=== PATIENT | male | born 1950 | race Caucasian/White ===

== ENCOUNTER → 2017-05-01 | Outpatient (CLI) | payer BC ==
[~2017-05-01] MED LIST: ASCA500 PO; ASPI81TA28 PO; ATOR10TA82 PO; CARV3.122 PO; COEN1CAP40 PO; LISI-729 PO; NITR0.4S UT; RBN/2 PO; RILU1TAB PO; VITACAP37 PO
[2017-05-01 15:56] LABS: HEMATOCRIT 47.2 % (42-52); MEAN CORPUSCULAR HEMOGLOBIN 30.1 pg (25-34); MEAN PLATELET VOLUME 10.5 fL (7.4-10.4); PLATELET COUNT 255 K/uL (130-400); RED BLOOD COUNT 5.02 M/uL (4.7-6.1); WHITE BLOOD COUNT 6.57 K/uL (4.8-10.8)
[2017-05-01 16:18] LABS: BLOOD UREA NITROGEN 12 mg/dl (7-18); CREATININE 0.64 mg/dl (0.60-1.40); GLUCOSE 85 mg/dl (70-99)
[2017-05-01 16:19] LABS: ALT/SGPT 61 U/L (12-78); AST/SGOT 35 U/L (15-37); BUN/CREATININE RATIO 19.1 (10-20); CALCIUM 8.7 mg/dl (8.5-10.1); CARBON DIOXIDE 35 mmol/L (21-32); CHLORIDE 98 mmol/L (98-107); POTASSIUM 4.2 mmol/L (3.5-5.1); SODIUM 137 mmol/L (136-145)
== END | disposition home or self-care (01) ==
LOC: C.LAB1850 14:48
PROVIDERS: ATTEND Internal Medicine Cardiovascular Disease
DX: E78.5 Hyperlipidemia, unspecified (principal); R74.0 Nonspecific elevation of levels of transaminase and lactic acid dehydrogenase [LDH]; I25.10 Atherosclerotic heart disease of native coronary artery without angina pectoris

== ENCOUNTER → 2017-05-08 | Day surgery (SDC) | payer BC ==
[2017-05-06 13:10] VITALS: BMI 23.0
[~2017-05-08] VITALS: Ht 167.6 cm; Wt 65.0 kg
[~2017-05-08] MED LIST changes: +CEFAZOLIN 1000MG/55 ML D5W IV SCH; +CEFAZOLIN SOD 1000MG/55 ML D5W IV ONE; +ETOMIDATE 2 MG/ML 20 ML VIAL IV ONE; +LIDOCAINE HCL 2% 2 ML VIAL (20MG/ML) ONE; +PROPOFOL IV EMULSION 10 MG/ML 20 ML VIAL IV ONE
[2017-05-08 09:28] VITALS: Ht 167.6 cm; Wt 65.0 kg
--- NOTE | 2017-05-08 10:16 | Endo History and Physical ---
History & Physical Date of Service: May 08, 2017. Chief Complaint: Hx ALS-peg tube placement Referring Physician: Dr. 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 He is referred for an EGD with PEG today. Past Surgical History Hx Cardiac Surgery: No Hx Internal Defibrillator: No Hx Pacemaker: No Hx Abdominal Surgery: No Hx of Implantable Prosthesis: No Hx Post-Op Nausea and Vomiting: No Hx Cancer Surgery: No Hx Thoracic Surgery: No Hx Orthopedic: Yes (FINGER SURGERY, SHOULDER SURGERY) Hx Urinary Tract Surgery: No Family History None Social History Smoking Status: Never Smoker Hx Substance Use: No Hx Alcohol Use: No Allergies Coded Allergies: No Known Allergies (Verified , 05/08/17) Current Medications Reported Home Medications Medications Dose Route/Sig Max Daily Dose Days Date Category E-400 (Vitamin E) 400 Unit Cap 1 Cap PO HS 05/06/17 Reported Vitamin C (Ascorbic Acid) 500 Mg Tab 500 Mg PO BID 05/06/17 Reported Riluzole 50 Mg Tab 50 Mg PO BID 05/06/17 Reported Nitrostat (Nitroglycerin) 0.4 Mg Sub 0.4 Mg UT PRN 05/06/17 Reported Zestril (Lisinopril) 5 Mg Tab 2.5 Mg PO QAM 05/06/17 Reported Glycopyrrolate 2 Mg Tab 2 Mg PO QAM 05/06/17 Reported Co Q-10 (Coenzyme Q10 (Ubidecarenone)) 400 Mg Cap 400 Mg PO BID 05/06/17 Reported Coreg (Carvedilol) 3.125 Mg Tab 3.125 Mg PO BID 05/06/17 Reported Lipitor (Atorvastatin Calcium) 10 Mg Tab 10 Mg PO HS 05/06/17 Reported Aspirin Ec (Aspirin) 81 Mg Tab 81 Mg PO HOLD 05/06/17 Reported Vital Signs Weight (Kilograms): 65.00 Height (Feet): 5 Height (Inches): 6 Date Time Temp Pulse Resp B/P (MAP) Pulse Ox O2 Delivery O2 Flow Rate FiO2 05/08/17 09:34 36.5 88 18 111/75 (87) 94 Room Air Physical Exam General Appearance: no apparent distress Respiratory/Chest: Auscultation: deminished air movement Cardiovascular: Heart Auscultation: RRR Abdomen: Inspection & Palpation: soft Assessment and Plan Patient for PEG tube placment today due to history of ALS resulting in malnutrition. We have discussed the risks to include bleeding, infection, perforation, pain, peg dysfunction, and the need for follow-up procedures. Plan Ancef prior to exam PEG today
--- NOTE | 2017-05-08 10:54 | Discharge Instructions ---
Endoscopy Patient Instructions Date / Procedure Performed May 08, 2017. Percutaneous Endoscopic Gastrotomy (P.E.G) Tube Replacement / Removal Allergy Information Coded Allergies: No Known Allergies (Verified , 05/08/17) Home Medication List Scheduled Ascorbic Acid (Vitamin C), 500 MG PO BID Aspirin (Aspirin Ec), 81 MG PO HOLD Atorvastatin (Lipitor), 10 MG PO HS Carvedilol (Coreg), 3.125 MG PO BID Coenzyme Q10 (Ubidecarenone) (Co Q-10), 400 MG PO BID Glycopyrrolate (Glycopyrrolate), 2 MG PO QAM Lisinopril (Zestril), 2.5 MG PO QAM Nitroglycerin (Nitrostat), 0.4 MG UT PRN Riluzole (Riluzole), 50 MG PO BID Vitamin E (E-400), 1 CAP PO HS Discharge Date / Findings May 08, 2017. Feeding tube placed. Medication Instructions Reported Home Medications Medications Dose Route/Sig Max Daily Dose Days Date Category E-400 (Vitamin E) 400 Unit Cap 1 Cap PO HS 05/06/17 Reported Vitamin C (Ascorbic Acid) 500 Mg Tab 500 Mg PO BID 05/06/17 Reported Riluzole 50 Mg Tab 50 Mg PO BID 05/06/17 Reported Nitrostat (Nitroglycerin) 0.4 Mg Sub 0.4 Mg UT PRN 05/06/17 Reported Zestril (Lisinopril) 5 Mg Tab 2.5 Mg PO QAM 05/06/17 Reported Glycopyrrolate 2 Mg Tab 2 Mg PO QAM 05/06/17 Reported Co Q-10 (Coenzyme Q10 (Ubidecarenone)) 400 Mg Cap 400 Mg PO BID 05/06/17 Reported Coreg (Carvedilol) 3.125 Mg Tab 3.125 Mg PO BID 05/06/17 Reported Lipitor (Atorvastatin Calcium) 10 Mg Tab 10 Mg PO HS 05/06/17 Reported Aspirin Ec (Aspirin) 81 Mg Tab 81 Mg PO HOLD 05/06/17 Reported Provider Instructions Activity Recommendations * Resume regular activity . Diet Recommendations * Resume previous diet. * Advance diet as tolerated. * Before each feeding, aspirate the tube for residual gastric contents. Hold feedings for residual of 50 ml or more. * Elevate the head of the bed during and after feedings for 30-60 minutes . Medication Instructions * Resume usual medications. * Always flush the tube with warm water after administration of medication. Follow-Up Information Follow-up with Dr. Rdz as scheduled Follow-up with Gastroenterology as needed Change PEG dressing every 24 hours for 3 days May use PEG for feeding on 05/09/17 Please flush PEG with 60 mL of water every 6 hours Anesthesia Information What You Should Know You have had a procedure that required some medicine to reduce anxiety and discomfort. This treatment is called moderate sedation. After receiving the treatment, you may be sleepy, but you will be able to breathe on your own. The effects of the treatment may last for several hours. Follow these instructions along with Activity/Diet recommendations noted above: * Do NOT do anything where dizziness or clumsiness would be dangerous. * Rest quietly at home today, then you can be up and about tomorrow. * Have a responsible person stay with you the rest of today. * You may have had an I.V. today. If so, you may take the dressing off later today. Symptoms Additional Instructions If you experience any of the following symptoms after your procedure seek medical attention at your closest Emergency Room and/or call your primary care physician immediately: * Severe abdominal pain or bloating * Fever greater than 101.1 degrees within 24 hours after the procedure * Uncontrolled nausea and vomiting Avoid all tobacco products. If you need help to stop smoking, call [place]'s FREE QUIT LINE at [phone]. Your discharge instructions were prepared by provider Dulce Pulliam. Patient Instructions Signature Page Javier Roque Patient (or Guardian) Signature/Date: I have read and understand the instructions given to me by my caregivers. Caregiver/RN/Doctor Signature/Date: The above-named patient and/or guardian has received patient instructions on this date. + Original Patient Signature Page (only) stays with chart. Please make copy for patient.
--- NOTE | 2017-05-08 10:59 | GI REPORT ---
Procedure Date: 05/08/2017 10:08 AM Procedure: Upper GI endoscopy Indications: Place PEG due to impaired swallowing, Place PEG due to neurological disorder causing impaired swallowing Medicines: Monitored Anesthesia Care, Ancef 1000 mg IV Complications: No immediate complications. Estimated blood loss: Minimal. Estimated Blood Loss: Estimated blood loss was minimal. Procedure: Pre-Anesthesia Assessment: - Prior to the procedure, a History and Physical was performed, and patient medications, allergies and sensitivities were reviewed. The patient's tolerance of previous anesthesia was reviewed. - The risks and benefits of the procedure and the sedation options and risks were discussed with the patient. All questions were answered and informed consent was obtained. - Patient identification and proposed procedure were verified prior to the procedure by the physician, the nurse and the gas cutting machine operator. The procedure was verified in the procedure room. - Pre-procedure physical examination revealed no contraindications to sedation. - ASA Grade Assessment: III - A patient with severe systemic disease. - After reviewing the risks and benefits, the patient was deemed in satisfactory condition to undergo the procedure. - The anesthesia plan was to use monitored anesthesia care (MAC). - Immediately prior to administration of medications, the patient was re-assessed for adequacy to receive sedatives. - The heart rate, respiratory rate, oxygen saturations, blood pressure, adequacy of pulmonary ventilation, and response to care were monitored throughout the procedure. - The physical status of the patient was re-assessed after the procedure. After obtaining informed consent, the endoscope was passed under direct vision. Throughout the procedure, the patient's blood pressure, pulse, and oxygen saturations were monitored continuously. The Scope was introduced through the mouth, and advanced to the third part of duodenum. The upper GI endoscopy was accomplished without difficulty. The patient tolerated the procedure well. Findings: The examined esophagus was normal. The Z-line was regular and was found 37 cm from the incisors. The entire examined stomach was normal. The patient was placed in the supine position for PEG placement. The stomach was insufflated to appose gastric and abdominal mendoza. A site was located in the body of the stomach with excellent transillumination and manual external pressure for placement. The abdominal wall was marked and prepped in a sterile manner. The area was anesthetized with 5 mL of 1% lidocaine. The trocar needle was introduced through the abdominal wall and into the stomach under direct endoscopic view. A snare was introduced through the endoscope and opened in the gastric lumen. The guide wire was passed through the trocar and into the open snare. The snare was closed around the guide wire. The endoscope and snare were removed, pulling the wire out through the mouth. A skin incision was made at the site of needle insertion. The externally removable 20 Fr Dann-Cook gastrostomy tube was lubricated. The G-tube was tied to the guide wire and pulled through the mouth and into the stomach. The trocar needle was removed, and the gastrostomy tube was pulled out from the stomach through the skin. The external bumper was attached to the gastrostomy tube, and the tube was cut to remove the guide wire. The final position of the gastrostomy tube was confirmed by relook endoscopy, and skin marking noted to be 2.5 cm at the external bumper. The final tension and compression of the abdominal wall by the PEG tube and external bumper were checked and revealed that the bumper was moderately tight and mildly deforming the skin. The feeding tube was capped, and the tube site cleaned and dressed. Estimated blood loss was minimal. The examined duodenum was normal. Impression: - Normal esophagus. - Z-line regular, 37 cm from the incisors. - Normal stomach. - Normal examined duodenum. - An externally removable PEG placement was successfully completed. - No specimens collected. Recommendation: - Please follow the post-PEG recommendations including: Nutrition consult for formula and volume, change dressing once per day, clean site with soap and water daily and dry thoroughly, may use PEG today for meds and water and may use PEG tomorrow for feedings. Dulce Pulliam D.O. Dulce Pulliam, 05/08/2017 10:59:11 AM This report has been signed electronically. Note Initiated On: 05/08/2017 10:08 AM I attest to the content of the Intraoperative Record and orders documented therein, exceptions below
[2017-05-08 11:09] VITALS: BP 131/66; PULSE 85; O2SAT 92
--- NOTE | 2017-05-08 11:20 | Anesthesiology Progress Note ---
Anesthesia Post Op Note Date & Time May 08, 2017 at 11:20 Vital Signs Pain Intensity: 0 Vital Signs Past 12 Hours Date Time Temp Pulse Resp B/P (MAP) Pulse Ox O2 Delivery O2 Flow Rate FiO2 05/08/17 10:59 86 16 104/76 (85) 93 Room Air 05/08/17 10:49 87 16 101/71 (81) 99 Room Air 05/08/17 09:34 36.5 88 18 111/75 (87) 94 Room Air Notes Mental Status: alert / awake / arousable, participated in evaluation Pt Amnestic to Procedure: Yes Nausea / Vomiting: adequately controlled Pain: adequately controlled Airway Patency, RR, SpO2: stable & adequate BP & HR: stable & adequate Hydration State: stable & adequate Anesthetic Complications: no major complications apparent
== END | disposition home or self-care (01) ==
LOC: C.GI 09:11
PROVIDERS: ATTEND Internal Medicine Gastroenterology
DX: G12.21 Amyotrophic lateral sclerosis (principal); E46 Unspecified protein-calorie malnutrition; Z79.82 Long term (current) use of aspirin; Z79.899 Other long term (current) drug therapy; Z43.1 Encounter for attention to gastrostomy

== ENCOUNTER 2017-06-15 09:44 | Inpatient (IN) | payer BC, OTHER ==
[~2017-06-15] VITALS: Ht 167.6 cm; Wt 64.6 kg
[~2017-06-15 09:44] MED LIST changes: -ATOR10TA82 PO; +ATOR10TA88 PO; -CEFAZOLIN 1000MG/55 ML D5W IV SCH; -CEFAZOLIN SOD 1000MG/55 ML D5W IV ONE; -ETOMIDATE 2 MG/ML 20 ML VIAL IV ONE; -LIDOCAINE HCL 2% 2 ML VIAL (20MG/ML) ONE; -PROPOFOL IV EMULSION 10 MG/ML 20 ML VIAL IV ONE
[2017-06-15] MEDS ORDERED: ALBUT/IPRATROP 3MG/0.5MG NEB 3 ML VIAL INH ONE (10:00)
[2017-06-15] MEDS ORDERED: MAGNESIUM SULFATE 1GM / D5W 1 GM BAG IV STA (10:04)
[2017-06-15] MEDS ORDERED: METHYLPREDNISOLONE 125 MG VIAL IV STA (10:04)
--- NOTE | 2017-06-15 10:06 | EMERGENCY ROOM VISIT NOTE ---
History Report prepared by Genna: Virgil Palafox Under the Supervision of: Dr. Laci Fenton M.D. First contact with patient: 09:51 Chief Complaint: SHORTNESS OF BREATH Stated Complaint: SOB, OXYGEN LEVEL, DX: ALS 06/26/13 Nursing Triage Summary: pt was dx with als. has feeding tube and has not been getting food through it yet. family reports he seems lethargic and sob started 1 weeks ago o2 level has been in the 80's. does not have o2 at home called pcp today for 76% o2 History of Present Illness The patient is a 66 year old male who presents to the Emergency Room with complaints of constant shortness of breath that started a week ago. The patient is accompanied by his family who report that for the last week he has been experiencing lethargy and confusion, which is worse at night. His reports that he has been easily falling asleep at random times. They also state that he typically uses a feeding tube, which he has not been getting enough food through recently. The family states that they regularly check his oxygen saturation levels and note that the patient's oxygen saturation has been decreasing into the 70s in the last week. The patient's states that when his oxygen level reached 76 this week, they called his PCP who advised he report to the ED. Per nursing, the patient's oxygen level was in the 80s upon arrival and they put him on 6L of oxygen. The patient reports that he is experiencing a relief of symptoms since the administration of oxygen. The family reports that the patient has a history of ALS, but denies any stimulator being used for treatment. His admits that he usually sees a neurologist every three months for his ALS, and admits that he has an appointment next week. She also reports that he typically uses a machine for his cough he has been experiencing for the past month and takes blood thinners. The patient denies administration of oxygen at home and an inability to ambulate. Source of History: patient Onset: a week ago Position: other (global) Timing: constant Modifying Factors (Relieving): oxygen Associated Symptoms: + fatigue Review of Systems See HPI for pertinent positives & negatives. A total of 10 systems reviewed and were otherwise negative. Past Medical & Surgical Medical Problems: (1) Acute respiratory failure with hypoxia and hypercapnia (2) ALS (amyotrophic lateral sclerosis) Social History Smoking Status: Former Smoker Drug Use: none Marital Status: Housing Status: lives with significant other Occupation Status: retired Current/Historical Medications Scheduled Ascorbic Acid (Vitamin C), 500 MG PO BID Aspirin (Aspirin Ec), 81 MG PO DAILY Atorvastatin (Lipitor), 10 MG PO HS Carvedilol (Coreg), 3.125 MG PO BID Coenzyme Q10 (Ubidecarenone) (Co Q-10), 400 MG PO BID Glycopyrrolate (Glycopyrrolate), 2 MG PO TID Lisinopril (Zestril), 1 TAB PO QAM Nitroglycerin (Nitrostat), 0.4 MG UT PRN Riluzole (Riluzole), 50 MG PO Q12H Vitamin E (E-400), 1 CAP PO HS Allergies Coded Allergies: No Known Allergies (Verified , 06/15/17) Physical Exam Vital Signs Date Time Temp Pulse Resp B/P (MAP) Pulse Ox O2 Delivery O2 Flow Rate FiO2 06/15/17 13:38 92 06/15/17 13:23 96 100 50 06/15/17 12:52 102 24 104/70 95 BiPAP 06/15/17 11:50 94 BiPAP 50 06/15/17 11:37 101 24 140/88 94 BiPAP 06/15/17 10:48 95 24 115/91 95 BiPAP 06/15/17 10:45 BiPAP 50 06/15/17 10:45 BiPAP 50 06/15/17 10:29 102 95 50 06/15/17 10:27 102 16 95 BiPAP/CPAP 50 06/15/17 09:57 99 06/15/17 09:45 36.7 114 20 140/75 80 Room Air Physical Exam GENERAL: Patient is a healthy-appearing well-nourished 66 year old male. Falls asleep immediately on exam. Cachetic in appearance. HEAD: Normocephalic atraumatic EYES: Ocular movements intact pupils equal and react to light OROPHARYNX mucous membranes are moist no exudates present no erythema or edema present NECK: Supple no nuchal rigidity CHEST: Good equal expansion LUNGS: Clear and equal to auscultation CARDIAC: Normal S1 and S2 ABDOMEN: Soft nontender no guarding BACK: No CVA tenderness EXTREMITIES: No pain upon palpation normal muscle strength in all groups no clubbing cyanosis or edema. 3/5 motor strength in right arm. NEURO: Patient is following commands and answering questions appropriately. Alert and oriented x3 Cranial Nerves 2-12 grossly intact. Medical Decision & Procedures ER Provider Diagnostic Interpretation: X-ray results as stated below per interpretation by me and the radiologist: CHEST ONE VIEW PORTABLE CLINICAL HISTORY: Hypoxia. COMPARISON STUDY: No previous studies for comparison. FINDINGS: There is no pneumothorax or pleural effusion. Evaluation is suboptimal due to difficulty with positioning. Bibasilar opacities are noted. There is no evidence of pulmonary edema. Gaseous distention of the stomach is noted. There is also distended loops of bowel within visualized portions of the upper abdomen with at least a moderate amount of stool within the right colon. IMPRESSION: 1. Bibasilar opacities which favor atelectasis. Pneumonia could appear similar although is considered less likely. Diminished lung volumes. 2. Suspected gaseous distention. Moderate to large amount of stool within the right colon. Electronically signed by: Tutu Appiah M.D. 06/15/2017 10:59 AM Dictated Date/Time: 06/15/2017 10:58 AM Laboratory Results 06/15/17 10:10 Red Blood Count 5.30, Mean Corpuscular Volume 93.8, Mean Corpuscular Hemoglobin 32.3, Mean Corpuscular Hemoglobin Concent 34.4, Mean Platelet Volume 10.2, Neutrophils (%) (Auto) 76.2, Lymphocytes (%) (Auto) 11.8, Monocytes (%) (Auto) 11.5, Eosinophils (%) (Auto) 0.1, Basophils (%) (Auto) 0.2, Neutrophils # (Auto ) 7.91, Lymphocytes # (Auto) 1.22, Monocytes # (Auto) 1.19, Eosinophils # (Auto ) 0.01, Basophils # (Auto) 0.02 06/15/17 10:10 Test 06/15/17 10:10 06/15/17 10:15 06/15/17 10:18 White Blood Count 10.37 K/uL (4.8-10.8) Red Blood Count 5.30 M/uL (4.7-6.1) Hemoglobin 17.1 g/dL (14.0-18.0) Hematocrit 49.7 % (42-52) Mean Corpuscular Volume 93.8 fL (80-100) Mean Corpuscular Hemoglobin 32.3 pg (25-34) Mean Corpuscular Hemoglobin Concent 34.4 g/dl (32-36) Platelet Count 227 K/uL (130-400) Mean Platelet Volume 10.2 fL (7.4-10.4) Neutrophils (%) (Auto) 76.2 % Lymphocytes (%) (Auto) 11.8 % Monocytes (%) (Auto) 11.5 % Eosinophils (%) (Auto) 0.1 % Basophils (%) (Auto) 0.2 % Neutrophils # (Auto) 7.91 K/uL (1.4-6.5) Lymphocytes # (Auto) 1.22 K/uL (1.2-3.4) Monocytes # (Auto) 1.19 K/uL (0.11-0.59) Eosinophils # (Auto) 0.01 K/uL (0-0.5) Basophils # (Auto) 0.02 K/uL (0-0.2) RDW Standard Deviation 42.4 fL (36.4-46.3) RDW Coefficient of Variation 12.5 % (11.5-14.5) Immature Granulocyte % (Auto) 0.2 % Immature Granulocyte # (Auto) 0.02 K/uL (0.00-0.02) Est Creatinine Clear Calc Drug Dose 93.7 ml/min Estimated GFR () 113.9 Estimated GFR (Non- 98.2 BUN/Creatinine Ratio 24.6 (10-20) Calcium Level 9.2 mg/dl (8.5-10.1) Total Bilirubin 0.5 mg/dl (0.2-1) Aspartate Amino Transf (AST/SGOT) 48 U/L (15-37) Alanine Aminotransferase (ALT/SGPT) 57 U/L (12-78) Alkaline Phosphatase 48 U/L (45-117) Total Creatine Kinase 645 U/L (39-308) Creatine Kinase MB 36.5 ng/ml (0.5-3.6) Creatine Kinase MB Ratio 5.7 (0-3.0) Troponin I 0.022 ng/ml (0-0.045) Pro-B-Type Natriuretic Peptide 136 pg/ml (0-900) Total Protein 7.5 gm/dl (6.4-8.2) Albumin 4.0 gm/dl (3.4-5.0) Globulin 3.5 gm/dl (2.5-4.0) Albumin/Globulin Ratio 1.1 (0.9-2) Bedside D-Dimer 193 ng/mlFEU (0-450) Bedside Hemoglobin 18.4 g/dl (14.0-18.0) Bedside Hematocrit 54 % (42-52) Bedside Sodium 128 mEq/L (135-144) Bedside Potassium 4.4 mEq/L (3.3-5.0) Bedside Chloride 80 mEq/L (101-112) Bedside Total CO2 > 40 mEq/l (24-31) Anion Gap 13.0 mmol/L (16-25) Bedside Blood Urea Nitrogen 19 mg/dl (7-18) Bedside Creatinine 0.8 mg/dl (0.6-1.3) Bedside Glucose (other) 113 mg/dl (70-99) Bedside Ionized Calcium (Alejandrina) 1.23 mmol/l (1.12-1.32) Labs reviewed by ED physician. Medications Administered Medications (Trade) Dose Ordered Sig/Dilcia Route Start Time Stop Time Status Last Admin Dose Admin Albuterol/ Ipratropium (Duoneb) 12 ml ONE ONCE INH 06/15/17 10:00 06/15/17 10:01 DC 06/15/17 10:25 12 ML Methylprednisolone Sodium Succinate (Solu-Medrol IV) 125 mg NOW STAT IV 06/15/17 10:04 06/15/17 10:06 DC 06/15/17 10:49 125 MG Magnesium Sulfate (Magnesium Sulfate) 2 gm NOW STAT IV 06/15/17 10:04 06/15/17 10:06 DC 06/15/17 10:50 2 GM Piperacillin Sod/ Tazobactam Sod (Zosyn Iv) 4.5 gm NOW STAT IV 06/15/17 10:44 06/15/17 10:46 DC 06/15/17 11:29 4.5 GM Levofloxacin (Levaquin / D5W) 750 mg NOW STAT IV 06/15/17 10:44 06/15/17 10:46 DC 06/15/17 11:35 750 MG Sodium Chloride 500 ml @ 999 mls/hr Q31M STAT IV 06/15/17 12:35 06/15/17 13:05 DC 06/15/17 12:51 999 MLS/HR ECG Indication: SOB/dyspnea Rate (beats per minute): 92 Rhythm: normal sinus Findings: no acute ischemic change, no ectopy, other (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 The patient was evaluated in room A09. A complete history and physical examination was performed. 1000: Duoneb 12 ml INH 1004: Magnesium Sulfate 2 gm IV, Solu-Medrol IV 125 mg IV. 1044: Levofloxacin 750 mg IV, Zosyn Iv 4.5 gm IV. 1122: I reevaluated the patient and he is resting comfortably. I discussed results and the treatment plan. The patient agrees to admission. He will be further evaluated. 1124: I discussed the patient's case with Dr. Hoffmann [facility] Hospitalist. He understands the patient's condition and he agrees to accept the patient. The patient will be further evaluated. Medical Decision The differential diagnosis includes but is not limited to: etiologies such as appendicitis, diverticulitis, PUD, biliary pathology, UTI, pancreatitis, obstruction, mesenteric ischemia, aortic pathology, infections, inflammatory bowel disease, renal colic, as well as others were entertained. Medication Reconciliation: I attest that I have personally reviewed the patient' s current medication list Blood Pressure Screening: Patient was found to have normal blood pressure on screening and does not require follow up. This is a 66-year-old male who falls immediately to sleep on examination. Based on this finding I was concerned that the patient's PCO2 was greatly elevated and I discussed placing BiPAP on the patient he agreed to this. The patient's PCO2 did come back elevated at 40. I did discuss the case with the ICU attending as well as case management. In the meanwhile the patient was given an hour-long breathing treatment along with Solu-Medrol. He does have what could appear to be a pneumonia on chest x-ray so I will start him on antibiotics. Medication Reconcilliation Current Medication List: was personally reviewed by me Consults Time Called: 1123 Consulting Physician: Dr. Bullock, [facility] Hospitalist Returned Call: [phone] I discussed the patient's case with Dr. Hoffmann [facility] Hospitalist. He understands the patient's condition and he agrees to accept the patient. The patient will be further evaluated. Impression Primary Impression: Hypoxia Critical Care I have personally spent greater than 90 minutes of critical care time in the direct management of this patient. This includes bedside care, interpretation of diagnostic studies, and testing, discussion with consultants, patient, and family members, and other required patient management activities. This 90 minutes is in excess of all separately billable procedures. Scribe Attestation The scribe's documentation has been prepared under my direction and personally reviewed by me in its entirety. I confirm that the note above accurately reflects all work, treatment, procedures, and medical decision making performed by me. Departure Information Dispostion Being Evaluated By Hospitalist (Dr. Hoffmann) Referrals Pro,Deshawn Iraheta M.D. (PCP) Patient Instructions My [facility]
[2017-06-15 10:24] LABS: BASO % 0.2 %; BASO ABS # 0.02 K/uL (0-0.2); COMPLETE YES; EOS % 0.1 %; HEMATOCRIT 49.7 % (42-52); IG% 0.2 %; LYMPH % 11.8 %; LYMPH ABS # 1.22 K/uL (1.2-3.4); MEAN CELL VOLUME 93.8 fL (80-100); MEAN CORPUSCULAR HEMOGLOBIN 32.3 pg (25-34); MEAN CORPUSCULAR HGB CONC 34.4 g/dl (32-36); MEAN PLATELET VOLUME 10.2 fL (7.4-10.4); MONO % 11.5 %; NEUT % 76.2 %; PLATELET COUNT 227 K/uL (130-400); WHITE BLOOD COUNT 10.37 K/uL (4.8-10.8)
[2017-06-15 10:27] VITALS: PULSE 102; O2SAT 95
[2017-06-15 10:29] VITALS: PULSE 102; O2SAT 95
[2017-06-15 10:30] LABS: ISTAT CARBON DIOXIDE > 40 mEq/l (24-31); ISTAT CHLORIDE 80 mEq/L (101-112); ISTAT CREATININE 0.8 mg/dl (0.6-1.3); ISTAT HEMATOCRIT 54 % (42-52); ISTAT HEMOGLOBIN 18.4 g/dl (14.0-18.0); ISTAT IONIZED CALCIUM 1.23 mmol/l (1.12-1.32); ISTAT SODIUM 128 mEq/L (135-144)
[2017-06-15 10:40] LABS: CALCIUM 9.2 mg/dl (8.5-10.1); POTASSIUM 4.3 mmol/L (3.5-5.1)
[2017-06-15] MEDS ORDERED: LEVAQUIN 750MG / 150ML D5W IV STA (10:44)
[2017-06-15] MEDS ORDERED: PIPERACILLIN/TAZOBACTAM 4.5 GM/100ML D5W IV STA (10:44)
[2017-06-15 10:47] LABS: BUN/CREATININE RATIO 24.6 (10-20); CREATININE 0.69 mg/dl (0.60-1.40)
[2017-06-15 10:51] LABS: ALB/GLOB RATIO 1.1 (0.9-2); CKMB/CK RATIO 5.7 (0-3.0)
--- NOTE | 2017-06-15 11:01 | DIAGNOSTIC IMAGING REPORT ---
CHEST ONE VIEW PORTABLE CLINICAL HISTORY: Hypoxia. COMPARISON STUDY: No previous studies for comparison. FINDINGS: There is no pneumothorax or pleural effusion. Evaluation is suboptimal due to difficulty with positioning. Bibasilar opacities are noted. There is no evidence of pulmonary edema. Gaseous distention of the stomach is noted. There is also distended loops of bowel within visualized portions of the upper abdomen with at least a moderate amount of stool within the right colon. IMPRESSION: 1. Bibasilar opacities which favor atelectasis. Pneumonia could appear similar although is considered less likely. Diminished lung volumes. 2. Suspected gaseous distention. Moderate to large amount of stool within the right colon. Electronically signed by: Tutu Appiah M.D. 06/15/2017 10:59 AM Dictated Date/Time: 06/15/2017 10:58 AM
[2017-06-15 11:50] VITALS: O2SAT 94; Ht 167.6 cm; Wt 64.6 kg
[2017-06-15] MEDS ORDERED: SODIUM CHLORIDE 0.9% 500ML 500 ML IV STA (12:35)
[2017-06-15] MEDS ORDERED: OPTIRAY 320 IV PRN (12:45)
[2017-06-15] MEDS ORDERED: LORAZEPAM 2 MG/ML 1 ML VIAL IV PRN (13:15)
[2017-06-15] MEDS ORDERED: MoRPHine SULFATE 4 MG/ML 1 ML CARP\\VIAL IV PRN (13:15)
[2017-06-15] MEDS ORDERED: ATROPINE SULFATE 1% OP SOLN 5 ML BTL SL PRN (13:15)
[2017-06-15 13:23] VITALS: PULSE 96; O2SAT 100
--- NOTE | 2017-06-15 13:24 | Critical Care Consultation ---
Critical Care Consultation Date of Consultation: Jun 15, 2017. Attending Physician: Reason for Consultation: Hypercarbia and need for mechanical ventilation History of Present Illness 66M with a PMHx of advanced ALS presenting with a one week history of hypoxia and lethargy. Upon exam pt was non invasive CPAP. Pt was not responsive to verbal stimuli. This is a chronic condition and the pt's has been preparing for this for 3.5 years. According to the pt's the patient did not want to be intubated or mechanically ventilated. Care plan was discussed extensively with the family, particularly the prognosis of worsening respiratory failure should the patient be intubated and successfully treated for pneumonia. Family expressed desire for a manager commercial real estate for last rites. All questions and plan of care was answered. ROS: Unable to obtain because patient is unarousable. Social History Smoking Status: Former Smoker Drug Use: none Marital Status: Housing Status: lives with significant other Occupation Status: retired Allergies Coded Allergies: No Known Allergies (Verified , 06/15/17) Home Medications Scheduled Ascorbic Acid (Vitamin C), 500 MG PO BID Aspirin (Aspirin Ec), 81 MG PO DAILY Atorvastatin (Lipitor), 10 MG PO HS Carvedilol (Coreg), 3.125 MG PO BID Coenzyme Q10 (Ubidecarenone) (Co Q-10), 400 MG PO BID Glycopyrrolate (Glycopyrrolate), 2 MG PO TID Lisinopril (Zestril), 1 TAB PO QAM Nitroglycerin (Nitrostat), 0.4 MG UT PRN Riluzole (Riluzole), 50 MG PO Q12H Vitamin E (E-400), 1 CAP PO HS Current Inpatient Medications Current Inpatient Medications Medications (Trade) Dose Ordered Sig/Dilcia Route Start Time Stop Time Status Last Admin Dose Admin Sodium Chloride 500 ml @ 999 mls/hr Q31M STAT IV 06/15/17 12:35 06/15/17 13:05 06/15/17 12:51 999 MLS/HR Ioversol (Optiray 320) 125 ml UD PRN IV 06/15/17 12:45 06/19/17 12:44 Review of Systems Unable to obtain secondary to patient condition Physical Exam Date Time Temp Pulse Resp B/P (MAP) Pulse Ox O2 Delivery O2 Flow Rate FiO2 06/15/17 12:52 102 24 104/70 95 BiPAP 06/15/17 11:50 94 BiPAP 50 06/15/17 11:37 101 24 140/88 94 BiPAP 06/15/17 10:48 95 24 115/91 95 BiPAP 06/15/17 10:45 BiPAP 50 06/15/17 10:45 BiPAP 50 06/15/17 10:29 102 95 50 06/15/17 10:27 102 16 95 BiPAP/CPAP 50 06/15/17 09:57 99 06/15/17 09:45 36.7 114 20 140/75 80 Room Air Gen: Pt is unconscious with a non invasive ventilatory mask. HEENT: Head - normocephalic and atraumatic. Eyes closed. Heart: Tachycardic. There is a normal S1 and S2 with no murmurs, clicks, or gallops appreciated. Lungs: Poor respiratory effort, not in visible respiratory distress. Abdomen: Soft, completely nontender, nondistended, with good bowel sounds. There are no palpable pulsatile masses or hepatosplenomegaly. There is no guarding, rigidity, or rebound noted. Extremities: No evidence of cyanosis, clubbing, or edema. There are easily palpable peripheral pulses. Neuro: Pt is unconscious, not responding to verbal or mechanical stimuli. Laboratory Results Last 24 Hours Test 06/15/17 10:04 06/15/17 10:10 06/15/17 10:15 06/15/17 10:18 White Blood Count 10.37 K/uL Red Blood Count 5.30 M/uL Hemoglobin 17.1 g/dL Hematocrit 49.7 % Mean Corpuscular Volume 93.8 fL Mean Corpuscular Hemoglobin 32.3 pg Mean Corpuscular Hemoglobin Concent 34.4 g/dl Platelet Count 227 K/uL Mean Platelet Volume 10.2 fL Neutrophils (%) (Auto) 76.2 % Lymphocytes (%) (Auto) 11.8 % Monocytes (%) (Auto) 11.5 % Eosinophils (%) (Auto) 0.1 % Basophils (%) (Auto) 0.2 % Neutrophils # (Auto) 7.91 K/uL Lymphocytes # (Auto) 1.22 K/uL Monocytes # (Auto) 1.19 K/uL Eosinophils # (Auto) 0.01 K/uL Basophils # (Auto) 0.02 K/uL RDW Standard Deviation 42.4 fL RDW Coefficient of Variation 12.5 % Immature Granulocyte % (Auto) 0.2 % Immature Granulocyte # (Auto) 0.02 K/uL Sodium Level 127 mmol/L Potassium Level 4.3 mmol/L Chloride Level 85 mmol/L Carbon Dioxide Level 40 mmol/L Anion Gap 2.0 mmol/L 13.0 mmol/L Blood Urea Nitrogen 17 mg/dl Creatinine 0.69 mg/dl Est Creatinine Clear Calc Drug Dose 93.7 ml/min Estimated GFR () 113.9 Estimated GFR (Non- 98.2 BUN/Creatinine Ratio 24.6 Random Glucose 107 mg/dl Calcium Level 9.2 mg/dl Total Bilirubin 0.5 mg/dl Aspartate Amino Transf (AST/SGOT) 48 U/L Alanine Aminotransferase (ALT/SGPT) 57 U/L Alkaline Phosphatase 48 U/L Total Creatine Kinase 645 U/L Creatine Kinase MB 36.5 ng/ml Creatine Kinase MB Ratio 5.7 Troponin I 0.022 ng/ml Pro-B-Type Natriuretic Peptide 136 pg/ml Total Protein 7.5 gm/dl Albumin 4.0 gm/dl Globulin 3.5 gm/dl Albumin/Globulin Ratio 1.1 Bedside D-Dimer 193 ng/mlFEU Bedside Hemoglobin 18.4 g/dl Bedside Hematocrit 54 % Bedside Sodium 128 mEq/L Bedside Potassium 4.4 mEq/L Bedside Chloride 80 mEq/L Bedside Total CO2 > 40 mEq/l Bedside Blood Urea Nitrogen 19 mg/dl Bedside Creatinine 0.8 mg/dl Bedside Glucose (other) 113 mg/dl Bedside Ionized Calcium (Alejandrina) 1.23 mmol/l Assessment & Plan Reason Critically Ill: End-stage ALS, presumptive pneumonia, hypercarbic hypoxic respiratory failure. PLAN: Neuro: ALS * First diagnosed in 2012, family reports rapid progression over the last 3 months * It appears that the patient is now in the end stages of ALS, his bicarbonate on 05/01/2017 was 35, today on 06/15/2017 is 40, I am highly suspicious of chronic hypercapnia due to respiratory insufficiency with renal compensation Resp: Respiratory failure, hypercarbic hypoxic * Patient started on bilevel noninvasive ventilation in emergency department * Patient has a pure respiratory acidosis * Patient would require invasive ventilation at this point Possible pneumonia * In discussing with the patient's and family we can treat an underlying pneumonia however it would be extremely difficult and in my opinion highly unlikely we would be able to liberate the patient from the ventilator * reports he did not want heroic life prolonging efforts and did not want mechanical ventilation and tracheostomy * Continue current antibiotics CV: Tachycardia * Volume resuscitation Fluids/Renal: Hyponatremia * Volume resuscitation and treatment for possible atypical pneumonia ID: Possible pneumonia * Broad spectrum coverage with Zosyn and Levaquin GI/Nutrition: Nothing by mouth Heme: Indices within normal limits Endocrine: Mild hyperglycemia I had an extensive discussion with the patient's , brother's (Craig who is also a physician) regarding goals of care. The patient would not once to have his life prolonging on mechanical ventilator. I feel we could treat an underlying pneumonia, however not completely convinced he has a infectious process compromising his lungs at this time. I do believe he has chronic respiratory insufficiency and we have likely reached the point now that he needs chronic mechanical ventilation. All the family in agreement that he would not want to undergo this, accordingly we made him a DO NOT RESUSCITATE DO NOT INTUBATE will focus on his comfort during the natural dying process. We have contacted the on-call coal hauler for last rights, he will be admitted to the fourth floor. I have personally spent 35 minutes of critical care time in the direct management of this patient. This is a life/limb threatening event. This includes time spent evaluating patient, direct bedside care, chart review, placing orders, interpretation of diagnostic studies, discussion with consultants, patient, and family members, as well as other required patient management activities. This time is exclusive of all separately billable procedures, and teaching time and separate from and in addition to any other critical care service time. Resident Involvement: Resident Care Provided Care Provided: Adult [facility] Medicine
[2017-06-15] MEDS ORDERED: LORAZEPAM INJ 1 MG in SYRINGE 0.5 ML IV PRN (13:45)
--- NOTE | 2017-06-15 13:57 | History and Physical ---
History & Physical Date & Time of Service: Jun 15, 2017 at 13:33 Chief Complaint: Sob, Oxygen Level, Dx: Als 06/26/13 Primary Care Physician: Deshawn Rdz M.D. History of Present Illness Source: patient, family (brother and 2 sisters at bedside), spouse, clinic records, hospital records This is a 66 y/o male with a history of ALS, SD s/p mid LAD stent in 2010, CAD, anxiety, HTN, and HLD who presented to the ED on 06/15 with acute respiratory failure. The patient was unresponsive and on BiPAP during my exam. History obtained from the patient's , brother, and sisters who are at bedside. The family states that the patient had been increasingly lethargic, confused, and short of breath over the last week. The patient does not have any oxygen at home, but had recently qualified for a CPAP machine which has not yet arrived. The patient's O2 saturations have been in the mid 80s all week. The patient's called their home health nurse when the patient was found to have an O2 saturation of 76% today. They were advised to come to the ED for further evaluation. The patient has had increased lethargy this last week but has reportedly not been sleeping at night, leading to increased daytime drowsiness. The patient has also had increased confusion, at times not making sense to his family members. The patient has a history of ALS which was diagnosed in 2012. The patient follows with neurology at [facility] every 3 months, and had been due for another follow-up next week. The family states that the patient's ALS has been progressing more in the last few months. The patient has had very little appetite and the last 2 weeks especially. The patient had a feeding tube placed last month, but has not yet used it and is still relying on oral nutrition and supplementation with Boost. The states the patient has lost about 10 pounds in the last month. Past Medical/Surgical History ALS h/o SD s/p LAD stent in 2010 Anxiety HTN HLD Family History Coronary artery disease Hyperlipidemia Hypertension Parkinson's disease Social History Smoking Status: Former Smoker (quit 30 years ago) Smokeless Tobacco Use: No Alcohol Use: none Drug Use: none Marital Status: Housing status: lives with significant other Occupational Status: retired Multi-Drug Resistant Organisms History of MDRO: No Allergies Coded Allergies: No Known Allergies (Verified , 06/15/17) Home Medications Scheduled Ascorbic Acid (Vitamin C), 500 MG PO BID Aspirin (Aspirin Ec), 81 MG PO DAILY Atorvastatin (Lipitor), 10 MG PO HS Carvedilol (Coreg), 3.125 MG PO BID Coenzyme Q10 (Ubidecarenone) (Co Q-10), 400 MG PO BID Glycopyrrolate (Glycopyrrolate), 2 MG PO TID Lisinopril (Zestril), 1 TAB PO QAM Nitroglycerin (Nitrostat), 0.4 MG UT PRN Riluzole (Riluzole), 50 MG PO Q12H Vitamin E (E-400), 1 CAP PO HS Review of Systems Unable to obtain ROS from patient due to condition. Physical Exam Vital Signs Date Time Temp Pulse Resp B/P (MAP) Pulse Ox O2 Delivery O2 Flow Rate FiO2 06/15/17 13:23 96 100 50 06/15/17 12:52 102 24 104/70 95 BiPAP 06/15/17 11:50 94 BiPAP 50 06/15/17 11:37 101 24 140/88 94 BiPAP 06/15/17 10:48 95 24 115/91 95 BiPAP 06/15/17 10:45 BiPAP 50 06/15/17 10:45 BiPAP 50 06/15/17 10:29 102 95 50 06/15/17 10:27 102 16 95 BiPAP/CPAP 50 06/15/17 09:57 99 06/15/17 09:45 36.7 114 20 140/75 80 Room Air General appearance: +Appears chronically ill. Currently on BiPAP and unresponsive. Well developed, well nourished Head: Normocephalic, atraumatic Eyes: +Exam limited by pt condition. Normal inspection, PERRL ENT: +Exam limited by BiPAP and pt condition. Normal ENT inspection Neck: Supple, no JVD, trachea midline Respiratory/Chest: +Decreased breath sounds. No obvious respiratory distress currently on BiPAP. Lungs clear to auscultation Cardiovascular: Regular rate & rhythm, no gallop, no murmur Abdomen/GI: Normal bowel sounds, non-tender, soft Extremities/Musculoskeletal: Normal inspection, no calf tenderness, no pedal edema Neurological/Psych: +Unresponsive. Does not awaken with verbal, physical or painful stimuli. Skin: Normal color, warm/dry, no rash Diagnostics Laboratory Results Results Past 24 Hours Test 06/15/17 10:04 06/15/17 10:10 06/15/17 10:15 06/15/17 10:18 Range/Units White Blood Count 10.37 4.8-10.8 K/uL Red Blood Count 5.30 4.7-6.1 M/uL Hemoglobin 17.1 14.0-18.0 g/dL Hematocrit 49.7 42-52 % Mean Corpuscular Volume 93.8 80-100 fL Mean Corpuscular Hemoglobin 32.3 25-34 pg Mean Corpuscular Hemoglobin Concent 34.4 32-36 g/dl Platelet Count 227 130-400 K/uL Mean Platelet Volume 10.2 7.4-10.4 fL Neutrophils (%) (Auto) 76.2 % Lymphocytes (%) (Auto) 11.8 % Monocytes (%) (Auto) 11.5 % Eosinophils (%) (Auto) 0.1 % Basophils (%) (Auto) 0.2 % Neutrophils # (Auto) 7.91 1.4-6.5 K/uL Lymphocytes # (Auto) 1.22 1.2-3.4 K/uL Monocytes # (Auto) 1.19 0.11-0.59 K/uL Eosinophils # (Auto) 0.01 0-0.5 K/uL Basophils # (Auto) 0.02 0-0.2 K/uL RDW Standard Deviation 42.4 36.4-46.3 fL RDW Coefficient of Variation 12.5 11.5-14.5 % Immature Granulocyte % (Auto) 0.2 % Immature Granulocyte # (Auto) 0.02 0.00-0.02 K/uL Sodium Level 127 136-145 mmol/L Potassium Level 4.3 3.5-5.1 mmol/L Chloride Level 85 98-107 mmol/L Carbon Dioxide Level 40 21-32 mmol/L Anion Gap 2.0 13.0 16-25 mmol/L Blood Urea Nitrogen 17 7-18 mg/dl Creatinine 0.69 0.60-1.40 mg/dl Est Creatinine Clear Calc Drug Dose 93.7 ml/min Estimated GFR () 113.9 Estimated GFR (Non- 98.2 BUN/Creatinine Ratio 24.6 10-20 Random Glucose 107 70-99 mg/dl Calcium Level 9.2 8.5-10.1 mg/dl Total Bilirubin 0.5 0.2-1 mg/dl Aspartate Amino Transf (AST/SGOT) 48 15-37 U/L Alanine Aminotransferase (ALT/SGPT) 57 12-78 U/L Alkaline Phosphatase 48 45-117 U/L Total Creatine Kinase 645 39-308 U/L Creatine Kinase MB 36.5 0.5-3.6 ng/ml Creatine Kinase MB Ratio 5.7 0-3.0 Troponin I 0.022 0-0.045 ng/ml Pro-B-Type Natriuretic Peptide 136 0-900 pg/ml Total Protein 7.5 6.4-8.2 gm/dl Albumin 4.0 3.4-5.0 gm/dl Globulin 3.5 2.5-4.0 gm/dl Albumin/Globulin Ratio 1.1 0.9-2 Bedside D-Dimer 193 0-450 ng/mlFEU Bedside Hemoglobin 18.4 14.0-18.0 g/dl Bedside Hematocrit 54 42-52 % Bedside Sodium 128 135-144 mEq/L Bedside Potassium 4.4 3.3-5.0 mEq/L Bedside Chloride 80 101-112 mEq/L Bedside Total CO2 > 40 24-31 mEq/l Bedside Blood Urea Nitrogen 19 7-18 mg/dl Bedside Creatinine 0.8 0.6-1.3 mg/dl Bedside Glucose (other) 113 70-99 mg/dl Bedside Ionized Calcium (Alejandrina) 1.23 1.12-1.32 mmol/l Microbiology Results 06/15/17 Blood Culture, Received Pending 06/15/17 Blood Culture, Received Pending Diagnostic Radiology Reviewed the following studies and agree with interpretation as follows: Patient Name: SHANNA GOOD Unit Number: [id number] Dictated: 06/15/171057 Transcribed: 06/15/171057 THADDEUS Printed Date/Time: [~ rep prt dt]/[~ rep prt tm] [~ rep ct labl] - [~ rep ct ivnm] [facility] [place] [address] Dictated: 06/15/171057 Transcribed: 06/15/171057 THADDEUS Printed Date/Time: [~ rep prt dt]/[~ rep prt tm] [~ rep ct labl] - [~ rep ct ivnm] Patient: SHANNA GOOD Address1: [address] [place] [address] Rec: [id number] Address2: Acct ID: [id number] [facility] Zip: [place] [address] Date: 1950 Sex: M Room/Bed: Ref Phy: Td Seay MD SC: LIZETH Att Phy: Report #: [id number] Briana Phy: Deshawn Rdz M.D. Test: CXR1P Admit Phy: Electrical Fitter: MALORIE Interpreting Phy: Tutu Appiah MD Diagnosis: SOB, OXYGEN LEVEL, DX: ALS Ordering Phy: Laci Fenton MD Service Date: 06/15/17 Admit Date: 06/15/17 MNE: [id number] CONF: DICTATED BY: Tutu Appiah MD]] CC: Laci Fenton MD Pro, Jeffrey W., M.D. Szymanski, Alexander W., MD Endcc: [~ rep ct add3]] CHEST ONE VIEW PORTABLE CLINICAL HISTORY: Hypoxia. COMPARISON STUDY: No previous studies for comparison. FINDINGS: There is no pneumothorax or pleural effusion. Evaluation is suboptimal due to difficulty with positioning. Bibasilar opacities are noted. There is no evidence of pulmonary edema. Gaseous distention of the stomach is noted. There is also distended loops of bowel within visualized portions of the upper abdomen with at least a moderate amount of stool within the right colon. IMPRESSION: 1. Bibasilar opacities which favor atelectasis. Pneumonia could appear similar although is considered less likely. Diminished lung volumes. 2. Suspected gaseous distention. Moderate to large amount of stool within the right colon. Electronically signed by: Tutu Appiah M.D. 06/15/2017 10:59 AM Dictated Date/Time: 06/15/2017 10:58 AM The status of this report is Signed. Draft = Not yet reviewed or approved by Radiologist. Signed = Reviewed and approved by Radiologist. <AttendingPhy></AttendingPhy> <FamilyPhy>Td Seay MD</FamilyPhy > <PrimaryPhy>Deshawn Rdz M.D.</PrimaryPhy> <UnitNumber>[id number]</ UnitNumber> <VisitNumber>[id number]</VisitNumber> <PatientName>SHANNA GOOD </PatientName> <DateOfBirth>1950</DateOfBirth> <Location>C.[facility]</Location> <ServiceDate>06/15/17</ServiceDate> <MNE>ESINDI</MNE> <OrderingPhy>Laci Fenton MD</OrderingPhy> <OrderingPhyMNE>f rep ord dr correa</OrderingPhyMNE> < DictatingPhyMNE>f rep dict dr correa</DictatingPhyMNE> <CCListMNE>f rep ct judithe</ CCListMNE> <AdmittingPhyMNE>f pt admit dr correa</AdmittingPhyMNE> <AttendingPhyMNE >f pt attend dr correa</AttendingPhyMNE> <ConsultingPhyMNE>f pt consult dr correa</ConsultingPhyMNE> <FamilyPhyMNE>f pt fam dr correa</FamilyPhyMNE> <OtherPhyMNE>f pt other dr correa</OtherPhyMNE> < PrimaryPhyMNE>f pt prim care dr correa</PrimaryPhyMNE> <ReferringPhyMNE>f pt referring dr correa</ReferringPhyMNE> EKG Reviewed EKG and agree with interpretation as follows: 92 bpm, NSR Impression Assessment and Plan 66 y/o male with a history of ALS, SD s/p mid LAD stent in 2010, CAD, anxiety, HTN, and HLD who presented to the ED on 06/15 with acute respiratory failure. Pt unresponsive on exam. POC ABG shows pH of 7.124 and pCO2 over 130. Structures Mechanic consulted for intubation/trach. Family does not want this and wishes to place him on hospice. Acute respiratory failure with hypoxia and hypercapnia secondary to pneumonia in the setting of ALS -Admit to med/surg for comfort measures -Scratcher Tender contacted for last rites -Morphine 4 mg IV q30min prn pain or dyspnea -Ativan 1 mg IV q1h prn anxiety -Atropine 1% 2 drops SL q2h prn excess secretions -Hold all PO meds -NPO -Continue BiPAP for now until last of family arrives. We will discontinue this once they are ready as pt is expected to pass quickly once this is stopped -No further labs or testing -No antibiotics -No DVT prophylaxis in the setting of comfort measures Code Status -Level V, DO NOT RESUSCITATE Level of Care Med/Surg Advanced Directives Existing Living Will: No Existing Power of Rating Specialist: No Resuscitation Status DO NOT RESUSCITATE VTE Prophylaxis VTE Risk Assessment Done? Y/N: Yes Risk Level: Moderate Given or contraindicated: Treatment not indicated (comfort only) Reviewed: Pt Seen/Exam by Me History Physician Vice Chancellor Supervision Note: I interviewed and examined the patient. Discussed with LUNA Hernandez and agree with findings and plan as documented in the note. Any exceptions or clarifications are listed here: Patient is a 66 yo male with a h/o ALS, CAD, who presented to the ER with acute hypoxemic and hypercapnic respiratory failure and lethargy as well as confusion. He had a suspected pneumonia on chest x-ray initially, however CT injury in the chest showed atelectasis and was negative for PE or definitive pneumonia. It was suspected that this has been more of a subacute hypercapnic and hypoxemic failure secondary to his ALS given the compensatory metabolic alkalosis on his basic metabolic panel. He was obtunded when I saw him in conjunction with the horticultural farm manager that I discussed the case with. In a group discussion with the horticultural farm manager, myself, the patient's , brother, and [id number], everyone was in agreement that the patient expressed desires that he would not want to be on a ventilator to prolong his life. The wanted him to have comfort measures only at this point. The horticultural farm manager expressed the fact that he did not think there would be a good chance that the patient would be able to come off of ventilator once he was put on it. Vitals reviewed Thin, sarcopenia, unresponsive, with BiPAP mask in place Tachycardic, regular rhythm, no definite murmur Respirations were very slow and even, no wheezes crackles or rhonchi Abdomen positive bowel sounds soft nontender nondistended Extremities no edema ECGs reviewed and showed possible ST elevation in lead 2 and 3 as well as V6 consistent with either pericarditis pattern versus repolarization changes Labs reviewed, troponin was negative, significant elevation in bicarbonate level , pH 7.12, PaCO2 over 130 66-year-old unfortunate male with ALS, here with likely acute on chronic hypoxemic and hypercapnic respiratory failure secondary to ALS and possible pneumonia. -Family opting for comfort measures only as per patient's previously expressed wishes if his prognosis became poor -Morphine, Ativan, atropine drops all as needed for comfort -Support given to family members at the bedside Documented By: Claudia Bullock
--- NOTE | 2017-06-15 14:09 | DIAGNOSTIC IMAGING REPORT ---
CT ANGIOGRAPHY OF THE CHEST, PULMONARY EMBOLUS PROTOCOL CLINICAL HISTORY: Hypoxia. Shortness of breath. COMPARISON STUDY: Chest radiograph June 15, 2017. TECHNIQUE: Following IV administration of 94 mL of Optiray-320, helical axial images of the chest were obtained utilizing the pulmonary embolus protocol. Maximal intensity projections and sagittal and coronal reformats were viewed on an independent 3D workstation. IV contrast was administered without complication. A dose lowering technique was utilized adhering to the principles of ALARA. CT DOSE: 303.15 mGy.cm FINDINGS: No pulmonary emboli are identified. The size of the heart is at the upper limits of normal. There is moderate coronary artery calcification. There is no evidence of thoracic aortic dissection. There is moderate distention of the stomach and mild dilatation of the esophagus. Lower lobe volume loss is noted with segmental lower lobe opacities which favor atelectasis. There is mild lingular and right middle lobe opacity which favors atelectasis as well. Central airways are patent. Bony thorax and upper abdomen are otherwise unremarkable. IMPRESSION: 1. No pulmonary emboli identified. 2. Extensive bilateral lower lobe airspace opacities with volume loss. The appearance favors atelectasis. Electronically signed by: Tutu Appiah M.D. 06/15/2017 2:07 PM Dictated Date/Time: 06/15/2017 2:01 PM
[2017-06-15] MEDS ORDERED: PNEUMOCOCCAL ADMINISTRATION CHARGE ONE (14:15)
[2017-06-15] MEDS ORDERED: PNEUMOCOCCAL POLYSACCHARIDES 25 MCG/0.5 ML VIAL/SYR IM. ONE (14:15)
[2017-06-15 14:40] VITALS: O2SAT 100
[2017-06-15 15:13] VITALS: BP 179/106; PULSE 112; TEMP 36.4; O2SAT 97
--- NOTE | 2017-06-16 01:03 | Death Pronouncement Note ---
Pronouncement Note Date & Time of Jun 16, 2017. 0010 Pronouncement At time of pronouncement the patients pupils were fixed and dilated, there was no spontaneous respiratory effort, no palpable pulse, no audible heart tones, and no response to pain or voice.
[2017-06-17 12:04] LABS: ISTAT ARTERIAL BLOOD GAS PCO2 < 10 mmHg (35-46); ISTAT ARTERIAL BLOOD GAS PO2 187 mmHg (80-95); ISTAT ARTERIAL BLOOD GAS pH 7.12 (7.35-7.45); ISTAT CARBON DIOXIDE < 5 mEq/l (24-31)
--- NOTE | 2017-06-20 23:45 | Death Summary ---
Summary of Admission Date Jun 15, 2017 at 13:31 Date & Time of Jun 16, 2017. 0010 Cause of acute/chronic hypoxic/hypercarbic respiratory failure Secondary Diagnoses ALS CAD hyponatremia metabolic encephalopathy 2nd to respiratory failure failure to thrive Hospital Course 66 yo male with a h/o ALS, CAD, and failure to thrive who presented to the ER with acute (on likely chronic) hypoxemic and hypercapnic respiratory failure. He was obtunded at time of admission. A discussion was held with his /family, the hospitalist team, and the critical care attending and at that time it was decided to pursue comfort care measures. The patient was placed on a comfort care pathway and on 06/16/17 at 0010 he passed peacefully. Copy To Pro,Deshawn Iraheta M.D.
== END 2017-06-16 00:10 | disposition expired | DRG 208 ==
LOC: C.EDB 09:45 → C.4E 13:31 → CANRESERV 13:42 → ENRESERV 13:42
PROVIDERS: ADMIT Family Medicine; ATTEND Family Medicine
PROC: 5A1935Z Respiratory Ventilation, Less than 24 Consecutive Hours (ICD-10-PCS; principal; 2017-06-15)
DX: J96.01 Acute respiratory failure with hypoxia (principal); J18.9 Pneumonia, unspecified organism; G12.21 Amyotrophic lateral sclerosis; E87.1 Hypo-osmolality and hyponatremia; J96.02 Acute respiratory failure with hypercapnia; I25.2 Old myocardial infarction; F41.9 Anxiety disorder, unspecified; I10 Essential (primary) hypertension; E78.5 Hyperlipidemia, unspecified; Z82.49 Family history of ischemic heart disease and other diseases of the circulatory system; Z82.0 Family history of epilepsy and other diseases of the nervous system; Z95.5 Presence of coronary angioplasty implant and graft; Z66 Do not resuscitate; Z93.1 Gastrostomy status; Z87.891 Personal history of nicotine dependence; Z79.82 Long term (current) use of aspirin; I25.10 Atherosclerotic heart disease of native coronary artery without angina pectoris; Z51.5 Encounter for palliative care